=== PATIENT | male | born 1970 | race Native Hawaiian/Other Pacific Islander ===

== ENCOUNTER 2018-12-07 07:35 | Emergency (ER) | payer OTHER ==
[~2018-12-07] VITALS: Ht 165.1 cm; Wt 99.8 kg
[2018-12-07 07:39] VITALS: TEMP 97.9
[2018-12-07] MEDS ORDERED: AMOX875T8 PO (07:50)
[2018-12-07 08:16] VITALS: BP 152/199
== END 2018-12-07 08:16 | disposition home or self-care (01) ==
LOC: ED 07:35
DX: R13.10 Dysphagia, unspecified (principal); T17.298A Other foreign object in pharynx causing other injury, initial encounter
CPT/HCPCS: 99281

== ENCOUNTER 2018-12-20 07:38 | Day surgery (SDC) | payer OTHER ==
[~2018-12-20 07:38] MED LIST: AMOX875T8 PO
[2018-12-20 08:30] LABS: PLATELET COUNT 177 K/uL (142-355)
== END 2018-12-20 15:40 | disposition short-term general hospital (02) ==
LOC: OR 07:38
PROVIDERS: Internal Medicine
PROC: 0DB68ZZ Excision of Stomach, Via Natural or Artificial Opening Endoscopic (ICD-10-PCS; principal; 2018-12-20)
PROC: 0D738ZZ Dilation of Lower Esophagus, Via Natural or Artificial Opening Endoscopic (ICD-10-PCS; 2018-12-20)
DX: K29.50 Unspecified chronic gastritis without bleeding (principal); B96.81 Helicobacter pylori [H. pylori] as the cause of diseases classified elsewhere; R13.10 Dysphagia, unspecified; K22.2 Esophageal obstruction; K44.9 Diaphragmatic hernia without obstruction or gangrene; K25.9 Gastric ulcer, unspecified as acute or chronic, without hemorrhage or perforation; S11.21XA Laceration without foreign body of pharynx and cervical esophagus, initial encounter; S27.813A Laceration of esophagus (thoracic part), initial encounter; Z87.898 Personal history of other specified conditions
CPT/HCPCS: 80053; 85027; J2250; J2270; J2704; J2765

== ENCOUNTER 2018-12-20 15:49 | Outpatient (CLI) | payer OTHER | END 2018-12-20 17:08 | disposition short-term general hospital (02) | LOC: AMB 15:49 | DX: K22.2 Esophageal obstruction (principal); R07.0 Pain in throat; Y84.8 Other medical procedures as the cause of abnormal reaction of the patient, or of later complication, without mention of misadventure at the time of the procedure; Y92.239 Unspecified place in hospital as the place of occurrence of the external cause | CPT/HCPCS: A0425; A0427 ==

== ENCOUNTER 2022-07-20 11:22 | Outpatient (CLI) | payer OTHER | END 2022-07-20 19:54 | disposition home or self-care (01) | LOC: US 11:22 | PROVIDERS: ATTEND Internal Medicine | DX: R94.5 Abnormal results of liver function studies (principal) ==